=== PATIENT | female | born 1985 | race Caucasian/White ===

== ENCOUNTER 2024-05-08 11:10 | Emergency (ER) | payer SELFPAY ==
--- NOTE | ~2024-05-08 | US_ITS ---
EXAMINATION: US OB <=14 wk fetus w TV DATE: 05/08/2024 13:39 INDICATION: Concern for miscarriage during first trimester TECHNIQUE: Real-time pelvic ultrasound utilizing both a transvaginal and transabdominal probe was pe rformed. The interpreting radiologist was not present for the study. COMPARISON: None. FINDINGS: The uterus measures 8.1 x 4.9 x 5.5 cm. There is an intrauterine gestational sac. A 2 mm yolk sac is identified but no discernible pole which may be due to early stage of . The mean sac diameter measures 14 mm, which correlates with an estimated gestational age of 5 weeks and 4 days. Th ere is a trace amount of anechoic fluid measuring up to 1 mm in thickness within the endocervical can al. The right ovary is not visualized. The left ovary measures 2.6 x 1.9 x 2.1 cm. Vascular flow is ident ified in the left ovary on color Doppler. There is trace amount of free fluid in the deep cul-de-sac. IMPRESSION: 1. Single intrauterine gestational sac with visible yolk sac but no discernible pole likely due to early stage of . 2. Gestational age by ultrasound based upon mean sac diameter of 5 weeks 4 day(s) +/- 4 day(s) with ultrasound estimated date of delivery (BIJAL) of 01/04/2025. Reviewed, dictated and finalized at location A. [facility] IMPRESSION: 1. Single intrauterine gestational sac with visible yolk sac but no discernible pole likely due to early stage of . 2. Gestational age by ultrasound based upon mean sac diameter of 5 weeks 4 day (s) +/- 4 day(s) with ultrasound estimated date of delivery (BIJAL) of 01/04/2025 .
[2024-05-08 11:31] VITALS: BP 132/101; PULSE 70; RESP 20; TEMP 36.7; O2SAT 99
[2024-05-08 12:21] VITALS: BP 167/113; PULSE 88; RESP 18; O2SAT 99
[2024-05-08 12:30] VITALS: BP 111/92; PULSE 94; RESP 18; O2SAT 97
--- NOTE | 2024-05-08 12:44 | ED.PREGNANCY ---
HPI - General Chief complaint: Urogenital-Female Stated complaint: hematuria, bilateral flank pain, 9 weeks preg Time Seen by Provider: 05/08/24 12:11 History of Present Illness HPI Narrative: 39-year-old female presenting to the emergency department for ongoing vaginal bleeding in the setting of . She is approximately 9 weeks by last menstrual. However she went to a different emergency department 2 days ago and had ultrasound and beta hCG level drawn. At that time she had ultrasound report that state about 6 weeks but no cardiac activity with IUP noted. Beta hCG level of 13,000. She tried following up with OB for 2 day follow-up but was not able to and was told to go the emergency department. Patient describes passing clots with vaginal bleeding, pain in her abdomen, nauseousness without vomiting, no diarrhea constipation. No fever or chills. Started taking nitrofurantoin for UTI diagnosed at the previous providers visit. She states she has been before but never had a delivery. No history of abdominal surgeries. Was otherwise in her normal state of health. Related Data Allergies Allergy/AdvReac Type Severity Reaction Status Date / Time Sulfa (Sulfonamide Allergy Hives Verified 05/08/24 11:13 Antibiotics) Review of Systems Review of Systems: As reviewed above in HPI Exam Narrative: GENERAL: [Well-appearing, well-nourished, and in no acute distress.] HEAD: [Normocephalic, atraumatic.] EYES: [PERRLA and EOMI.] ENT: Nares clear, no rhinorrhea or epistaxis. Mucous membranes moist. NECK: Supple. CHEST: [Clear to auscultation. No respiratory distress.] HEART: [Regular rate and rhythm]. No murmur heard. [Normal peripheral pulses.] ABDOMEN: [Soft, nondistended], [nontender], [No rigidity or guarding] EXTREMITIES: Normal range of motion. [No edema.] SKIN: Warm, dry, no rash. NEURO: [No focal deficits]. Alert and oriented [x3.] PSYCH: Tearful affect Course Vital Signs Vital signs: Vital Signs Temperature 36.7 C 05/08/24 11:31 Pulse Rate 70 05/08/24 11:31 Respiratory Rate 20 05/08/24 11:31 Blood Pressure 132/101 H 05/08/24 11:31 Pulse Oximetry 99 05/08/24 11:31 Oxygen Delivery Room Air 05/08/24 11:31 Temperature 36.7 C 05/08/24 11:31 Pulse Rate 77 05/08/24 13:59 Respiratory Rate 16 05/08/24 13:59 Blood Pressure 132/90 05/08/24 13:59 Pulse Oximetry 99 05/08/24 13:59 Oxygen Delivery Room Air 05/08/24 11:31 MDM - OB/Uterine Contractions MDM Narrative Medical decision making narrative: 39-year-old female presenting to the emergency depart with ongoing vaginal bleeding, abdominal cramping in the setting of . She is approximately 9 weeks by last menstrual period, had an ultrasound 2 days ago at outside hospital showing IUP 6 weeks with no cardiac activity, beta hCG level of 13,000 and a UTI. She was placed on nitrofurantoin told to follow-up with OBGYN. She has not made an appointment or been able to follow-up with OBGYN and came to the ER here. She describes passing bright red blood mixed with some dark material as well as blood clots the size of times and stringy. No tissue passenger large blood clots to her knowledge. No fever, chills, vomiting, diarrhea, constipation. No history of abdominal surgeries. She has a soft nontender nondistended abdomen, is tearful but otherwise has normal vital signs with a significant derangements. No fever, tachycardia, hypoxia. I reviewed patient's MyChart on her phone and she has a beta hCG level of approximately 13,000 dated 2 days ago and a IUP with 6 weeks on ultrasound with a subchorionic hematoma noted. Will repeat ultrasound here and obtain new beta hCG level as well as blood work. She will be given morphine and Zofran for her discomfort. Lactated Ringer bolus given. Differential diagnosis includes ongoing miscarriage, early 1st trimester viable , vaginal bleeding in the setting , subchorionic hemorrhage, less likely abruption or trauma. Low suspicion other intra-abdominal process given her history. Workup shows no significant leukocytosis, hemoglobin stable at 13.4, normal platelet count. Normal electrolytes, normal renal and hepatic function panels. In beta hCG elevated at 14,289 thousand two hundred eighty nine which is increased over the 13,000 level 2 days ago from outside hospital. Urinalysis shows trace leukocyte esterase but no convincing UTI although she is currently on nitrofurantoin for treatment. Ultrasound shows a single IUP with yolk sac but no discernible pole, gestational age of approximately 5 weeks and 4 days which is lower than the previously reported 6 weeks 4 days from 2 days prior at outside report. 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 She does have a small rise in her beta hCG which could be seen in early or early miscarriage. We discussed at bedside the expectant plan of care going forward which will be to establish with OBGYN and be re-evaluated in the next several days for repeat labs and maybe even repeat ultrasound image. Patient was given very strict return precautions including bleeding greater than 2 pads per hour, feeling like she is going to pass out, nauseousness, worsening pain or cramping. Discussed expected management going forward and referred her to the on-call OBGYN to establish care. Patient felt comfortable with the plan and was safe for discharge at this time. Medical Records Attestation: I reviewed the patient's medical records. Lab Data Attestation: I reviewed the patient's lab results. 05/08/24 12:54 05/08/24 12:54 Labs: Lab Results 05/08/24 05/08/24 Range/Units 12:54 12:55 WBC 10.9 H (4.5-10.0) K/mm3 RBC 4.48 (4.2-5.4) M/mm3 Hgb 13.4 (12.0-15.0) g/dL Hct 39.5 (37.0-47.0) % MCV 88.2 (80-100) fl MCH 29.9 (26-34) pg MCHC 33.9 (32-36) g/dl RDW 12.5 (11.5-14.5) % Plt Count 341 (150-375) k/mm3 MPV 9.9 (7.4-10.4) fl Immature Gran % (Auto) 0.3 (0-0.5) % Neut % (Auto) 72.9 (45.5-73.1) % Lymph % (Auto) 20.5 (18.3-44.2) % [place] % (Auto) 4.0 (2.6-8.5) % Eos % (Auto) 1.8 (0-4.4) % Baso % (Auto) 0.5 (0.2-1.2) % Lymph # (Auto) 2.23 (0.9-3.2) K/mm3 [place]vert # (Auto) 0.4 (0.1-0.6) K/mm3 Eos # (Auto) 0.2 (0-0.3) K/mm3 Baso # (Auto) 0.1 (0.0-0.1) K/mm3 Abs Immat Gran (auto) 0.03 (0.00-0.031) K/mm3 Absolute Neuts (auto) 8.0 H (1.3-6.7) K/mm3 Absolute Nucleated RBC 0.000 (0.0-0.012) K/mm3 Nucleated RBC % 0.0 (0.0-0.2) % PT 12.6 (11.1-14.7) Seconds INR 0.9 APTT 27.1 (22.3-36.8) Seconds Sodium 140 (137-145) mmol/L Potassium 4.2 (3.4-5.0) mmol/L Chloride 104 (98-107) mmol/L Carbon Dioxide 24 (22-30) mmol/L Anion Gap 12 (4-12) mmol/L BUN 6 L (7-17) mg/dL Creatinine 0.63 L (0.7-1.0) mg/dL Estim Creat Clear Calc Not Reportable Estimated GFR > 60 (59 - ) Glucose 139 H (65-110) mg/dL Calcium 9.8 (8.4-10.2) mg/dL Total Bilirubin 0.6 (0.2-1.3) mg/dL AST 18 (14-36) U/L ALT 18 (6-35) U/L Alkaline Phosphatase 65 (38-126) U/L Total Protein 7.0 (6.3-8.2) g/dL Albumin 4.6 (3.5-5.1) g/dL Beta HCG, Quant 47920.00 mIU/ML Urine Color Yellow (Yellow) Urine Appearance Clear (Clear) Urine pH 6.5 (5.0-9.0) Ur Specific [place] 1.014 (1.001-1.035) Urine Protein Negative (Negative) mg/dL Urine Glucose (UA) Negative (Negative) mg/dL Urine Ketones Trace H (Negative) mg/dL Ur Blood (Man) 2+ H (Negative) Urine Nitrate Negative (Negative) Urine Bilirubin Negative (Negative) Urine Urobilinogen 0.2 (<2.0) mg/dL Add Ur Microanalysis Reviewed Leukocyte Esterase Rfl Trace H (Negative) BIBIANA/UL Urine RBC 6-10 H (0-2) /hpf Urine WBC 0-5 (0-3) /hpf Ur Squamous Epith Cells Occasional (Few) /hpf Urine Bacteria None seen /hpf Urine Casts 0-2 Blood Type A Positive Antibody Screen Negative Screen Not Reportable Baby's Blood Type Not Reportable Baby's ARABELLA Not Reportable Doses of RhIg Required 0 Imaging Data Attestation: I personally reviewed and interpreted this imaging study as follows: My impression: Impressions Obstetrics Ultrasound 05/08/24 13:50 IMPRESSION: 1. Single intrauterine gestational sac with visible yolk sac but no discernible pole likely due to early stage of . 2. Gestational age by ultrasound based upon mean sac diameter of 5 weeks 4 day(s) +/- 4 day(s) with ultrasound estimated date of delivery (BIJAL) of 01/04/2025. Discharge Plan Discharge Clinical Impression: Vaginal bleeding affecting early , Intrauterine , Miscarriage, threatened, early Patient Disposition: Home, Self-Care Condition: Stable Instructions: Antibiotic Form, Miscarriage (ED), Threatened Miscarriage (ED) Additional Instructions: Your ultrasound shows a approximate gestational age of 5 weeks and 4 days which is 1 week lower than the previous reported ultrasound 2 days ago. Your beta hCG level has risen slightly at 14,200 however in the setting of abdominal cramping and vaginal bleeding you likely are going through a threatened or in process miscarriage although very early cannot be fully excluded given the rise in your beta hCG level. We need you to establish with an OBGYN. Please call the provided clinic information or find her own OBGYN they prefer to see. Follow-up with them for repeat labs and possibly repeat imaging studies. Recommendations are to try and follow up with them in several days. If you experience worsening bleeding, worsening pain, soaking greater than 2 pads per hour or developing lightheadedness, passing out or feeling any other concerns please return to the emergency department at that time. Patient Language: German Follow-up/Referrals: Scar Anderson MD [Physician] - 3 Days (Establish care) Alan Bermeo MD [Physician] - 3 Days ([facility]) PHYSICIAN,PHYSICAL BIOCHEMIST [Non-Staff] - Time of Disposition: 14:24
--- OUTSIDE RECORDS SUMMARY | 2024-05-08 12:49 | XMS_ITS | Referral Summary ---
Author Organization [facility] Address [address] [place] [address] Phone Care Team Providers Care Shipping Point Inspector Name Role Phone Katrin Bess MD Primary Care Provider [phone] Allergies Active Allergy Reactions Criticality Noted Date Comments Sulfa (Sulfonamide Antibiotics) Hives Medium 11/[address] (CYMBALTA) 30 mg capsule Take 1 capsule (30 mg total) by mouth daily 30 capsule 06/01/2022 Active rimegepant (NURTEC ODT) tablet,disinteg ratingIndicatio ns:Migraine Prevention Place 1 tablet (75 mg total) under the tongue daily 14 tablet 06/01/2022 Active Active Problems Problem Noted Date Diagnosed Date Chronic migraine without aur a without status migrainosus, not intractable 06/01/2022 Assessment & Plan (06/01/2022 12:50 PM CDT): Chronic longstanding history of headache Trigger factors reviewed Maintain headache diary Supportive care treatment measures reviewed Empiric treatment with Nurtec Avoid OTC NSAID's to prevent analgesic headache Moderate episode of recurrent major depressive d isorder 06/01/2022 Assessment & Plan (06/01/2022 12:51 PM CDT): Symptomatic Start on Cymbalta, increase the dose to 60 mg daily in 7-10 days Side effects reviewed Encouraged to be compliant with the medicine Recommended counseling/CBT Follow-up in 6-8 weeks Immunizations Immunization Administration Dates Next Due Influenza, Unspecified 06/01/2022(Deferr ed: Patient Refused),05/16/2021(Deferred: Patient Refused) Tdap 06/02/2015 Social History Tobacco Use Types Packs/Day Years Used Date Smoking Tobacco: Every Day Cigarettes 0.5 22.1 Started: 2002 Tobacco Cessation:Ready to Q uit: Not Asked; Counseling Given: Not Answered AUDIT-C Answer Date Recorded Q1: How often do you have a drink containing alc ohol? Monthly or less 06/01/2022 Q2: How many drinks containi ng alcohol do you have on a typical day when you are drinking? 3 or 4 06/01/2022 Q3: How often do you have si x or more drinks on one occasion? 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 Care Teams Shipping Point Inspector Relationship Specialty Start Date End Date Katrin Bess MD [address] [place] [id number] PCP - General Family Medicine 06/01/22
--- OUTSIDE RECORDS SUMMARY | 2024-05-08 12:49 | XMS_ITS | Clinical Summary ---
Author Organization [facility] Address [address] [place] [address] Phone Care Team Providers Care Adz Worker Name Role Phone Katrin Bess MD Primary Care Provider [phone] Allergies Active Allergy Reactions Criticality Noted Date [...] ed: Patient Refused),05/16/2021(Deferred: Patient Refused) Tdap 06/02/2015 Surgical History Surgery Date Site/Laterality Comments NO PAST SURGERIES Medical History Medical History Date Comments Migraine headache dx at age 5 Family History Medical History Relation Name Comments Lung cancer Maternal Grandfather Diabetes Maternal Grandmother Headache Mother Lung cancer Paternal Grandfather Breast cancer Paternal Grandmother Colon cancer Neg Hx Heart attack Neg Hx Ovarian cancer Neg Hx Relation Name Status Comments Maternal Grandfather Maternal Grandmother Mother Paternal Grandfather Paternal Grandmother Social History Tobacco Use Types Packs/Day Years [...] on file 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 Gender Identity Not on file Sexual Orientation Not on file Obstetrics History Para Term AB IAB SAB Ectopic Multiple Livin g Live Births 1 1 Date Outcome GA Total Labor Labor/2nd/3rd Weight Sex Type Anes PTL Colette A1 A5 Name Clin AB Last Filed Vital Signs Vital Sign Reading [...] 06/01/2022 9:06 AM CDT Plan of Treatment Health Maintenance Due Date Last Done Comments Cervical Cancer Screening 1985 Hepatitis C Screening 1985 Varicella Vaccines (1 of 2 - 13+ 2-dose series) 1998 Hepatitis B Screening 2003 Regular Well Visit/Exam 18-64 2003 Pneumococcal vaccine <65 (1 of 2 - PCV) 02/07/2004 Depression Screening 06/02/2023 06/01/2022, 06/01/2022 Influenza Vaccine (#1) 2023 DTaP/Tdap/Td Vaccine (2 - Td or Tdap) 06/01/2025 06/02/2015 HPV Vaccines Aged Out No longer eligi ble based on patient's age to complete this topic Insurance [facility] Care Teams Adz Worker Relationship Specialty Start Date End Date Katrin Bess MD [address] [place] [address] [phone] PCP - General Family Medicine 06/01/22
--- OUTSIDE RECORDS SUMMARY | 2024-05-08 12:50 | XMS_ITS | Clinical Summary ---
Author Organization [facility] Address [address] [place] [address] Care Team Providers Care Centrifugal Separator Name Role Phone None, Provider MD Primary Care Provider Unavaila ble Allergies Active Allergy Reactions Criticality Noted Date Comments Sulfa Antibiotics Hives 05/06/2024 Medications nitrofurantoin, macrocrystal-mo nohydrate, (MACROBID) 100 MG capsule Take 1 capsule (100 mg total) by mouth 2 (two) times daily for 10 days. 20 capsule 05/06/2024 Active Encounters Date Type Department Care Team Description 05/06/2024 7:56 PM ENTERPRISE SOFTWARE DEVELOPER - 05/06/2024 10:48 PM ENTERPRISE SOFTWARE DEVELOPER Emergency [facility] Emergency Room [address] [place] [address] Jermain Cox MD Vaginal Bleeding Discharge Disposition: Home or Self Care (Routine Discharge) 05/06/2024 Travel from Last 3 Months Social History Tobacco Use Types Packs/Day Years Used Date Smoking Tobacco: Never Assessed Comments Yes Sex and Gender Information Value Date Recorded Sex Assigned at Female 05/06/2024 7:46 PM ENTERPRISE SOFTWARE DEVELOPER Legal Sex Female 7:30 PM ENTERPRISE SOFTWARE DEVELOPER Gender Identity Not on file Sexual Orientation Not on file Last Filed Vital Signs Vital Sign Reading Time Taken Comments Blood Pressure 126/70 05/06/2024 10:37 PM ENTERPRISE SOFTWARE DEVELOPER Pulse 78 05/06/2024 10:37 PM ENTERPRISE SOFTWARE DEVELOPER Temperature 36.9 C (98.4 F) 05/06/2024 9:09 PM ENTERPRISE SOFTWARE DEVELOPER Respiratory Rate 16 05/06/2024 10:37 PM ENTERPRISE SOFTWARE DEVELOPER Oxygen Saturation 98% 05/06/2024 10:37 PM ENTERPRISE SOFTWARE DEVELOPER Inhaled Oxygen Concentration - - Weight 72.6 kg (160 lb) 05/06/2024 9:09 PM ENTERPRISE SOFTWARE DEVELOPER Height 162.6 cm (5' 4 ) 05/06/2024 9:09 PM ENTERPRISE SOFTWARE DEVELOPER Body Mass Index 27.46 05/06/2024 9:09 PM ENTERPRISE SOFTWARE DEVELOPER Plan of Treatment Health Maintenance Due Date Last Done Comments Cervical Cancer Screening Pa p Smear (Age 30 to 64) Every 3 Years 1985 Annual Physical 02/07/1988 Hepatitis C 2003 DTaP, Tdap and Td Vaccines ( 1 - Tdap) 02/07/2004 Hepatitis B Vaccines (1 of 3 - 19+ 3-dose series) 02/07/2004 Cervical Cancer Screening Pa p with HPV Testing (Age 30 to 64) Every 5 Years 2015 Cervical Cancer Screening with HPV 2015 COVID-19 Vaccine (2023-2 5 season) 2023 Influenza Adult (#1) 2023 RSV Immunization or 60+ Years (1 - 1-dose 75+ series) 02/07/2060 HPV Vaccines Aged Out No longer eligi ble based on patient's age to complete this topic Meningococcal B Vaccine Aged Out No l onger eligible based on patient's age to complete this topic Meningococcal Vaccine Aged Out No maura fior eligible based on patient's age to complete this topic Pneumococcal Vaccine: Pediat rics (0 to 5 Years) and At-Risk Patients (6 to 64 Years) Aged Out No longer eligible b ased on patient's age to complete this topic RSV Immunizations Under 20 Months Aged Out No longer eligible based on patient's age to complete this topic Procedures Procedure Name Priority Date/Time Associated Diagnosis Comments HC BLOOD TYPING ABO STAT 05/06/2024 9 :15 PM ENTERPRISE SOFTWARE DEVELOPER HCG QUANT (SERUM)-CHORIONIC GONADOTROPIN STAT 05/06/2024 9:15 PM ENTERPRISE SOFTWARE DEVELOPER COMPREHENSIVE METABOLIC PANEL STAT 05/06/2024 9:15 PM ENTERPRISE SOFTWARE DEVELOPER CBC W/DIFF AUTOMATED STAT 05/06/2024 9:15 PM ENTERPRISE SOFTWARE DEVELOPER US OB TRANSVAG STAT 05/06/2024 8:58 PM ENTERPRISE SOFTWARE DEVELOPER URINALYSIS, AUTO, COMPLETE STAT 05/06/2024 8:37 PM ENTERPRISE SOFTWARE DEVELOPER from Last 3 Months Results * (ABNORMAL) COMPREHENSIVE METABOLIC PANEL (05/06/2024 9:15 PM ENTERPRISE SOFTWARE DEVELOPER) GLUCOSE 103(H) 70 - 99 MG/DL 05/06/2024 10:21 PM [facility] BUN 7 7 - 18 MG/DL 05/06/2024 10:21 PM [facility] CREATININE S/P/B 0.69 0.55 - 1.02 MG/DL 05/06/2024 10:21 PM [facility] SODIUM S/P/B 140 136 - 145 MMOL/L 05/06/2024 10:21 PM [facility] POTASSIUM S/P/B 3.6 3.5 - 5.1 MMOL/L 05/06/2024 10:21 PM [facility] CHLORIDE S/P/B 103 100 - 108 MMOL/L 05/06/2024 10:21 PM [facility] CO2 25.2 21 - 32 MMOL/L 05/06/2024 10:21 PM [facility] CALCIUM S/P/B 9.6 8.5 - 10.1 MG/DL 05/06/2024 10:21 PM [facility] BILIRUBIN TOTAL S/P/B 0.6 0.2 - 1.2 MG/DL 05/06/2024 10:21 PM [facility] TOTAL PROTEIN S/P/B 7.3 6.4 - 8.2 G/DL 05/06/2024 10:21 PM [facility] ALBUMIN S/P/B 4.1 3.4 - 5.0 G/DL 05/06/2024 10:21 PM [facility] AST 10(L) 15 - 37 U/L 05/06/2024 10:21 PM [facility] ALT 21 14 - 55 U/L 05/06/2024 10:21 PM [facility] ALKALINE PHOSPHATASE S/P/B 71 50 - 136 U/L 05/06/2024 10:21 PM [facility] ANION GAP 11.8 5 - 15 MMOL/L 05/06/2024 10:21 PM [facility] BUN CREATININE RATIO 10.1 6 - 26 05/06/2024 10:21 PM [facility] A/G RATIO 1.3 1.0 - 2.0 RATIO 05/06/2024 10:21 PM [facility] GFR ESTIMATE >90 >90 ML/MIN/1.7 3 M2 05/06/2024 10:21 PM [facility] Comment: NOTE: eGFR is not calculated for patients <18 years of age. This is an estimated GFR calculation using the new CKD EPI creatinine equation without race and so does not require a correction factor for race. This estimated GFR should not be used for calculating drug doses. 05/06/2024 9:15 PM ENTERPRISE SOFTWARE DEVELOPER us Jermain Cox MD LABORATORY Final Resu lt [facility] [address] [place] [address], * (ABNORMAL) Quantitative HCG (05/06/2024 9:15 PM ENTERPRISE SOFTWARE DEVELOPER) Pathologist [facility] HCG QUANTITATIVE 12,954(H) 0 - 6 MIU/ML 05/06/2024 10:21 PM [facility] Comment: WEEKS OF REFERENCE RANGES NON- FEMALE 0-6 0.2 - 1 5 - 50 1 - 2 50 - 500 2 - 3 100 - 5000 3 - 4 500 - 10,000 4 - 5 1000 - 50,000 5 - 6 10,000 - 100,000 6 - 8 15,000 - 200,000 2 - 3 MONTHS 10,000 - 100,000 05/06/2024 9:15 PM ENTERPRISE SOFTWARE DEVELOPER us Jermain Cox MD LABORATORY Final Resu lt Performing Organization Address City/[facility]/ZIP Co de Phone Number [facility] [address] [place] [address], [place] [phone] * BLOOD TYPING, ABO AND RH (05/06/2024 9:15 PM ENTERPRISE SOFTWARE DEVELOPER) ABO/RH A POSITIVE 05/06/2024 10:08 PM ENTERPRISE SOFTWARE DEVELOPER [facility] 05/06/2024 9:15 PM ENTERPRISE SOFTWARE DEVELOPER us Jermain Cox MD BLOOD BANK TEST ORDERABLES Final Result Performing Organization Address City/[facility] Co de Phone Number [facility] [address] [place] [address], [place] [phone] * (ABNORMAL) CBC W/DIFF AUTOMATED (05/06/2024 9:15 PM ENTERPRISE SOFTWARE DEVELOPER) WBC 11.26(H) 4.4 - 11.0 x10'3/uL 05/06/2024 9:39 PM ENTERPRISE SOFTWARE DEVELOPER [facility] RBC 4.53 4.50 - 5.10 x10'6/uL 05/06/2024 9:39 PM ENTERPRISE SOFTWARE DEVELOPER [facility] HGB 13.4 12.3 - 15.3 G/DL 05/06/2024 9:39 PM ENTERPRISE SOFTWARE DEVELOPER [facility] HCT 39.5 35.9 - 44.6 % 05/06/2024 9:39 PM [facility] MCV 87.2 80.0 - 96.0 FL 05/06/2024 9:39 PM [facility] MCH 29.6 25.3 - 30.9 PG 05/06/2024 9:39 PM [facility] MCHC 33.9 31.0 - 34.1 G/DL 05/06/2024 9:39 PM [facility] RDW 12.6 12.4 - 15.1 % 05/06/2024 9:39 PM [facility] PLT 354(H) 151 - 353 x10'3/uL 05/06/2024 9:39 PM [facility] MPV 9.8 9.6 - 12.0 FL 05/06/2024 9:39 PM [facility] RBC MORPHOLOGY NORMAL 05/06/2024 9:39 PM [facility] PLT MORPH. NORMAL 05/06/2024 9:39 PM [facility] WBC MORPHOLOGY NORMAL 05/06/2024 9:39 PM [facility] LYMPHOCYTES % 26.2 15.8 - 45.0 % 05/06/2024 9:39 PM [facility] NEUTROPHILS % 67.5 42.1 - 71.9 % 05/06/2024 9:39 PM [facility] MONOCYTES % 5.2(L) 5.7 - 12.5 % 05/06/2024 9:39 PM [facility] EOSINOPHILS 0.4 0.0 - 5.6 % 05/06/2024 9:39 PM [facility] BASOPHILS 0.4 0.0 - 1.3 % 05/06/2024 9:39 PM [facility] ABS. NEUTROPHILS 7.61(H) 1.40 - 6.00 x10'3/uL 05/06/2024 9:39 PM ENTERPRISE SOFTWARE DEVELOPER [facility] IMMATURE GRANS % 0.3 0.0 - 0.5 % 05/06/2024 9:39 PM ENTERPRISE SOFTWARE DEVELOPER [facility] ABS. LYMPHOCYTES 2.95 0.80 - 4.70 x10'3/uL 05/06/2024 9:39 PM ENTERPRISE SOFTWARE DEVELOPER [facility] 05/06/2024 9:15 PM ENTERPRISE SOFTWARE DEVELOPER us Jermain Cox MD LABORATORY Final Resu lt [facility] [address] [place] [id number], [place] [phone] * US OB TRANSVAG (05/06/2024 8:58 PM ENTERPRISE SOFTWARE DEVELOPER) Anatomical Region Laterality Modality Abdomen, Pelvis Ultrasound 05/06/2024 9:04 PM ENTERPRISE SOFTWARE DEVELOPER Impressions 05/06/2024 9:11 PM ENTERPRISE SOFTWARE DEVELOPER IMPRESSION: 1. Intrauterine gestational sac with mean sac diameter corresponding to gestational age of 6 weeks and 4 days. No detected cardiac activity or pole at this time. Findings likely represent an early intrauterine and correlation with short-term follow-up ultrasound and serial beta hCG is recommended. 2. Suggestion of small subchorionic hematoma 8 x 2 mm. Attention on short-term follow-up ultrasound is recommended. 3. Suggestion of left ovarian corpus luteum cyst. Referred By: Interpreted By: Cristobal Wakefield MD, 05/06/2024 9:04 PM Narrative 05/06/2024 9:11 PM ENTERPRISE SOFTWARE DEVELOPER [facility] [address] [place] [address] Examination: US OB TRANSVAGINAL Exam Date/Time: 05/06/2024 8:03 PM Reason For Exam: vaginal bleeding, 9 weeks estimated gestational age Comparison: No existing relevant imaging study available. Technique: Transvaginal ultrasound evaluation of the pelvic contents was performed for analysis of grayscale and color Doppler imaging characteristics. Findings: The uterus measures 8.6 x 4.6 x 5.2 cm. Intrauterine gestational sac is seen with mean sac diameter measuring 1.6 cm corresponding to gestational age of 6 weeks and 4 days. No detected pole or cardiac activity at this time. Small anechoic area is seen adjacent to the gestational sac measuring 8 x 2 mm. Right ovary measures 2.4 x 0.9 x 2.2 cm. Left ovary measures 2.7 x 2.0 x 2.0 cm. Normal flow is seen to bilateral ovaries. Suggestion of left ovarian corpus luteum cyst measuring 1.6 cm. No significant free pelvic fluid is seen. Procedure Note Cristobal Wakefield MD - 05/06/2024 [facility] [address] [facility] [place] [address] Examination: US OB TRANSVAGINAL Exam Date/Time: 05/06/2024 8:03 PM Reason For Exam: vaginal bleeding, 9 weeks estimated gestational age Comparison: No existing relevant imaging study available. Technique: Transvaginal ultrasound evaluation of the pelvic contents wasperformed for analysis of grayscale and color Doppler imagingcharacteristics. Findings: The uterus measures 8.6 x 4.6 x 5.2 cm. Intrauterine gestational sac isseen with mean sac diameter measuring 1.6 cm corresponding to gestationalage of 6 weeks and 4 days. No detected pole or cardiac activity atthis time. Small anechoic area is seen adjacent to the gestational sacmeasuring 8 x 2 mm. Right ovary measures 2.4 x 0.9 x 2.2 cm. Left ovary measures 2.7 x 2.0 x2.0 cm. Normal flow is seen to bilateral ovaries. Suggestion of leftovarian corpus luteum cyst measuring 1.6 cm. No significant free pelvic fluid is seen. IMPRESSION: 1. Intrauterine gestational sac with mean sac diameter corresponding togestational age of 6 weeks and 4 days. No detected cardiac activity orfetal pole at this time. Findings likely represent an early intrauterinepregnancy and correlation with short-term follow-up ultrasound and serialbeta hCG is recommended. 2. Suggestion of small subchorionic hematoma 8 x 2 mm. Attention onshort-term follow-up ultrasound is recommended. 3. Suggestion of left ovarian corpus luteum cyst. Referred By: Interpreted By: Cristobal Wakefield MD, 05/06/2024 9:04 PM us Jermain Cox MD ULTRASOUND Final Resu lt * (ABNORMAL) URINALYSIS, AUTO, COMPLETE (05/06/2024 8:37 PM ENTERPRISE SOFTWARE DEVELOPER) COLOR (U) YELLOW 05/06/2024 8:54 PM ENTERPRISE SOFTWARE DEVELOPER [facility] TRANSPARENCY HAZY 05/06/2024 8:54 PM ENTERPRISE SOFTWARE DEVELOPER [facility] SPECIFIC GRAVITY (U) 1.010 1.000 - 1.030 05/06/2024 8:54 PM [facility] U PH 6.0 5.0 - 9.0 05/06/2024 8:54 PM [facility] LEUKOCYTES (U) 1+(A) NEGATIVE 05/06/2024 8:54 PM [facility] NITRITES NEGATIVE NEGATIVE 05/06/2024 8:54 PM [facility] PROTEIN RANDOM (U) NEGATIVE NEGATIVE 05/06/2024 8:54 PM [facility] GLUCOSE (U) NEGATIVE NEGATIVE 05/06/2024 8:54 PM [facility] KETONES MG/DL (U) NEGATIVE NEGATIVE 05/06/2024 8:54 PM [facility] BILIRUBIN (U) NEGATIVE NEGATIVE 05/06/2024 8:54 PM [facility] BLOOD (U) 3+(A) NEGATIVE 05/06/2024 8:54 PM [facility] WBC/HPF 5-10 0 - 5 /HPF 05/06/2024 8:54 PM ENTERPRISE SOFTWARE DEVELOPER [facility] RBC/HPF 5-10 0 - 5 /HPF 05/06/2024 8:54 PM ENTERPRISE SOFTWARE DEVELOPER [facility] EPI/HPF FEW /HPF 05/06/2024 8:54 PM ENTERPRISE SOFTWARE DEVELOPER [facility] BACTERIA (U) MODERATE /HPF 05/06/2024 8:54 PM ENTERPRISE SOFTWARE DEVELOPER [facility] URINE MURRAY FEW 05/06/2024 8:54 PM ENTERPRISE SOFTWARE DEVELOPER [facility] Comment:MUCOUS URINE SPECIMEN OBTAINED BY CLEAN CATCH PROCEDURE / Unknown 05/06/2024 8:37 PM ENTERPRISE SOFTWARE DEVELOPER us Jermain Cox MD URINE ORDERABLES Final Res ult Performing Organization Address City/State/[facility] Co de Phone Number [facility] [address] [place] [address], [place] [phone] from Last 3 Months Care Teams Centrifugal Separator Relationship Specialty Start Date End Date None, Provider, PCP - General UNKNOWN PHYSICIAN SPECIALTY 05/06/24
--- OUTSIDE RECORDS SUMMARY | 2024-05-08 12:50 | XMS_ITS | Continuity of Care Document ---
Author Organization [facility] Address [address] [place] [address] Phone Care Team Providers Care Pumping Plant Operator Name Role Phone Gwen Palencia MD Unavailable Unavailable Allergies, Adverse Reactions, Alerts Substance Reaction Status Criticality Sulfa (Sulfonamide Antibiotics) Active No Information Medications Medication Instructions Dosage Effective Dates (start - stop) Status Comments Effexor XR 75 mg capsule,extended release take 1 capsule by oral route every day with food 75 MG - Active clonazepam 0.5 mg tablet take 1 tablet by oral route every day 0.5 MG - Active Effexor XR 75 mg capsule,extended release take 1 capsule by oral route every day with food 75 MG - No Longer Active clonazepam 0.5 mg tablet take 1 tablet by oral route every day 0.5 MG - No Longer Active Advance Directives Directive Yes / No Effective Date File Name No Information Encounters Encounter Description Practice Location Reason(s) For Visit Diagnoses Date Provider Providers Copied on Encounter [facility], [address], [place], [place], [id number] , [place] tel: [phone] [employer] [facility] MARVIN (generalized anxiety disorder)Nicotine dependence, other tobacco product, uncomplicatedOccupa tional exposure to chemicalsEncounter for adult health maintenance exam w/o abnormal finding [address], [place], [id number] , [place]. tel: [phone] Referring Provider: Gwen Palencia, [place] [address] [address], [address] . tel:[phone] [facility], [address], [place], [place], [id number] , [place] tel: [phone] [facility] Occupational exposure to chemicalsEncounter to establish careGAD (generalized anxiety disorder) [address], [facility] [place], [id number] , [place]. tel: [phone] Referring Provider: Gwen Palencia, [address], [place], [address] . tel:[phone] Family History Family Member Type Diagnosis Age At Onset Maternal grandmother Problem (finding) Cancer, unknown Maternal grandmother Problem (finding) hypertension Mother Problem (finding) hypertension Maternal grandmother Problem (finding) Diabetes mellit Payers Payer name Insurance type Covered alliance party ID Authorbilla aneta(s) YAHAIRA O CI [id number] Social History Type Description Quantity Date Captured Comments Alcohol Use Details Caffeine Use Details soda Tobacco Use Status Smoking Status Heavy tobacco smoker Sex Female Vital Signs Date / Time: Height Weight BMI Pulse Rate Blood Pressure Temperature Respiratory Rate Body Surface Area Head Circumference Head Circ. Percentile Wt./Remigio. Percentile BMI percentile Pulse Ox Inhaled Ox 9:27 AM 64.00 in 70.851 kg (156.20 lbs) 26.8 1 kg/m eter (2) 84 /min 118/90 mm[Hg] 98.20 F 1.79 meter(2) 9:50 AM 120/80 mm[Hg] Chief Complaint And Reason For Visit No Information Reason For Referral Reason For Referral No Information History Of Present Illness Encounter Date Complaint History Of Prese nt Illness No Information Functional Status Date Functional Assessmen t No Information Instructions Date Instruction Additional Infor mation No Information Assessments Type Assessment Date No Information Patient Care Teams Name Effective Dates (start - stop) Status Members No Information
--- OUTSIDE RECORDS SUMMARY | 2024-05-08 12:50 | XMS_ITS | Clinical Summary ---
Author Organization [facility] Address [address] [place] [address] Care Team Providers Care Dielectric Machine Operator Name Role Phone Unavailable Primary Care Provider Unavailabl e Source Comments [facility], [facility],non-owned Affiliates and Associated Physician Practices is amultiple site organization consisting of ambulatory clinics and hospital sitesin [place], [place], [place] and [place]. This disclosure is being madepursuant to the Care Everywhere program and may not contain all information available regarding this patient. Last updated 17.[facility] Allergies Active Allergy Reactions Criticality Noted Date Comments Sulfa Drugs 03/27/2016 Medications Be aware that medications may not be up to date on this document. Always verify current medications with the patient. No known medications Family History Relation Name Status Comments Father Alive Mother Alive Social History Tobacco Use Types Packs/Day Years Used Date Smoking Tobacco: Every Day Cigarettes Smokeless Tobacco: Never Tobacco Cessation:Ready to Q uit: Yes; Counseling Given: Yes Alcohol Use Standard Drinks/Week Comments Yes 0 (1 standard drink = 0.6 oz pur e alcohol) occ PHQ-2 Answer Date Recorded PHQ2 TOTAL SCORE 0 07/26/2020 Sex and Gender Information Value Date Recorded Sex Assigned at Not on file Gender Identity Female 09/12/2017 10:58 AM CDT Sexual Orientation Not on file Last Filed Vital Signs Vital Sign Reading Time Taken Comments Blood Pressure 138/80 07/26/2020 9:14 AM CDT Pulse 92 07/26/2020 9:14 AM CDT Temperature 36.7 C (98 F) 07/26/2020 9:14 AM CDT Respiratory Rate 14 07/26/2020 9:14 AM CDT Oxygen Saturation 98% 07/26/2020 9:14 AM CDT Inhaled Oxygen Concentration - - Weight 72.6 kg (160 lb) 07/26/2020 9:14 AM CDT Height 162.6 cm (5' 4 ) 07/26/2020 9:14 AM CDT Body Mass Index 27.46 07/26/2020 9:14 AM CDT Plan of Treatment Health Maintenance Due Date Last Done Comments HIV SCREENING 02/07/2000 HEPATITIS C SCREENING 02/02/2003 DTAP/TDAP/TD VACCINES (1 - Tdap) 02/07/2004 HEPATITIS B VACCINE (1 of 3 - 19+ 3-dose series) 02/07/2004 PAP SMEAR 06/12/2013 06/12/2010 COVID-19 VACCINE (1 - 2023-2 5 season) 2023 INFLUENZA VACCINE (#1) 2023 DEPRESSION SCREENING 03/18/2024 ZOSTER VACCINE (1 of 2) 2035 HIB VACCINE Aged Out No longer eligi ble based on patient's age to complete this topic HPV VACCINE Aged Out No longer eligi ble based on patient's age to complete this topic MENINGOCOCCAL (Group B) VACCINE Aged Out No longer eligible based on patient's age to complete this topic MENINGOCOCCAL VACCINE Aged Out No maura fior eligible based on patient's age to complete this topic PNEUMOCOCCAL VACCINE Aged Out No long er eligible based on patient's age to complete this topic Procedures Procedure Name Priority Date/Time Associated Diagnosis Comments PAP IG LB CT+GC RFLX HPV HR ASCU Routine 06/12/2010 2:34 PM CDT Routine gynecological examination Skin tag from Last 3 Months or Most Recently Relevant to Health Maintenance Results * PAP IG CT+GC RFLX HPV ASCU (PO REF LAB) (06/12/2010 2:34 PM CDT) Diagnosis [facility] ACCOUNT BILL Comment: NEGATIVE FOR INTRAEPITHELIAL LESION AND MALIGNANCY. CELLULAR CHANGES ASSOCIATED WITH INFLAMMATION ARE PRESENT. THIS SPECIMEN WAS RESCREENED PART OF OUR CUSTOMER RESOLUTION SPECIALIST PROGRAM. Specimen Adequacy [facility] ACCOUNT BILL Comment: Satisfactory for evaluation. Endocervical and/or squamous metaplastic cells (endocervical component) are present. Clinician Provided ICD9 [facility] ACCOUNT BILL Comment: 701.9 ; Unspecified hypertrophic and atrophic condition of skin V72.31 ; Routine gynecological examination Performed by [facility] ACCOUNT BILL Comment:Esmer Muñoz, Cyto technologist (ASCP) QC Reviewed by [facility] ACCOUNT BILL Comment:Paulette Abrams Manager Cash (ASCP) Comment . [facility] ACCOUNT BILL Note [facility] ACCOUNT BILL Comment: The Pap smear is a screening test designed to aid in the detection of premalignant and malignant conditions of the uterine cervix. It is not a diagnostic procedure and should not be used as the sole means of detecting cervical cancer. Both false-positive and false-negative reports do occur. . IGLBP CPT Code Automation [facility] ACCOUNT BILL Comment: This liquid based ThinPrep(R) pap test was screened with the use of an image guided system. Reflex [facility] ACCOUNT BILL Comment: The HPV DNA reflex criteria were not met with this specimen result therefore, no HPV testing was performed. . Chlamydia trachomatis REILLY Negative Negative [facility] ACCOUNT BILL GC DNA Probe Negative Negative [facility] ACCOUNT BILL MICROSCOPIC CYTOLOGIC EXAMINATION OF SMEAR OF SPECIMEN FROM FEMALE GENITAL TRACT PREPARED USING PAPANICOLAOU TECHNIQUE / Unknown 06/12/2010 2:34 PM CDT 06/13/2010 5:43 AM CDT Narrative [facility] ACCOUNT BILL - 06/19/2010 12:11 PM CDT No. of containers..01 CYTYC Thin Prep Vial Resulting Agency Comment [facility] [address] Guzman [id number] Jaycee Omalley MD LAB - PATHOLOGY/CYTO LOGY ORDERABLES [facility] ACCOUNT BILL from Last 3 Months or Most Recently Relevant to Health Maintenance Ria Griffin Personal/Family Self 1985 [id number] [id number]
--- OUTSIDE RECORDS SUMMARY | 2024-05-08 12:50 | XMS_ITS | Encounter Summary ---
Author Organization [facility] Address [address] [place] [id number] Care Team Providers Care English Composition Instructor Name Role Phone None, Provider MD Primary Care Provider Unavaila ble Reason for Referral * Imaging (Emergency) - Pending Review Specialty Diagnoses / Procedures Referred By Contbozena t Referred To Contact RADIOLOGY Procedures US OB TRANSVAG US OB <14WKS TA Jermain Cox MD [address] [place] [address] Phone: tel: fax: Referral ID Status Reason Start Date Expiration Date V isits Requested Visits Authorized Pending Review 05/06/2024 05/06/2025 1 1 ULTING PRACTICE DIRECTOR Reason for Visit * Reason Comments Vaginal Bleeding Encounter Details Date Type Department Care Team (Late st Contact Info) Description 05/06/2024 7:56 PM CONSULTING PRACTICE DIRECTOR - 05/06/2024 10:48 PM CONSULTING PRACTICE DIRECTOR Emergency [facility] Emergency Room [address] [place] [address] Jermain Cox MD [address] [place] [address] Vaginal Bleeding Discharge Disposition: Home or Self Care (Routine Discharge) Social History Tobacco Use Types Packs/Day Years Used Date Smoking Tobacco: Never Assessed Comments Yes Sex and Gender Information Value Date Recorded Sex Assigned at Female 05/06/2024 7:46 PM CONSULTING PRACTICE DIRECTOR Legal Sex Female 7:30 PM CONSULTING PRACTICE DIRECTOR Gender Identity Not on file Sexual Orientation Not on file documented as of this encounter Last Filed Vital Signs Vital Sign Reading Time Taken Comments Blood Pressure 126/70 05/06/2024 10:37 PM CONSULTING PRACTICE DIRECTOR Pulse 78 05/06/2024 10:37 PM CONSULTING PRACTICE DIRECTOR Temperature 36.9 C (98.4 F) 05/06/2024 9:09 PM CONSULTING PRACTICE DIRECTOR Respiratory Rate 16 05/06/2024 10:37 PM CONSULTING PRACTICE DIRECTOR Oxygen Saturation 98% 05/06/2024 10:37 PM CONSULTING PRACTICE DIRECTOR Inhaled Oxygen Concentration - - Weight 72.6 kg (160 lb) 05/06/2024 9:09 PM CONSULTING PRACTICE DIRECTOR Height 162.6 cm (5' 4 ) 05/06/2024 9:09 PM CONSULTING PRACTICE DIRECTOR Body Mass Index 27.46 05/06/2024 9:09 PM CONSULTING PRACTICE DIRECTOR documented in this encounter Discharge Instructions * Discharge Instructions* Jermain Cox MD - 05/06/2024 10:31 PM CONSULTING PRACTICE DIRECTOR Contact the [facility] tomorrow at the phone number provided. During that call they will be ableto schedule you for your repeat hormone level and can provide additional guidance regarding getting insurance. They have provided reassurance that this should not prevent follow-up within their clinic. Take the antibiotic as directed until gone. ULTING PRACTICE DIRECTOR ULTING PRACTICE DIRECTOR * Attachments The following attachments cannot be sent through Care Everywhere. * Urinary Tract Infection Discharge Instructions, Adult (Montenegrin) * Threatened Miscarriage Discharge Instructions (Montenegrin) documented in this encounter Medications at Time of Discharge nitrofurantoin, macrocrystal-mono hydrate, (MACROBID) 100 MG capsule Take 1 capsule (100 mg total) by mouth 2 (two) times daily for 10 days. 20 capsule 05/06/2024 05/16/2024 documented as of this encounter ED Notes * Jermain Cox MD - 05/06/2024 10:48 PM CST Chief Complaint Chief Complaint Patient presents with Vaginal Bleeding History of Present Illness 39-year-old female G3, P0 EAB 2 at 9 weeks EGA by dates here with complaints of small amount of vaginal bleeding. Patient denies abdominal pain. No lightheadedness. She denies vaginal discharge. Patient has not been seen by an [facility] or had an ultrasound. Patient denies other medical complaints. Medical History ALLERGIES: Allergies Allergen Reactions Sulfa Antibiotics Hives MEDICATIONS: Prior to Admission medications Medication Sig Start Date End Date Taking? Authorizing Provider nitrofurantoin, macrocrystal-monohydrate, (MACROBID) 100 MG capsule Take 1 capsule (100 mg total) by mouth 2 (two) times daily for 10 days. 05/06/24 05/16/24 Yes Jermain Cox MD PAST MEDICAL HISTORY: No past medical history on file. PAST SURGICAL HISTORY: No past surgical history on file. FAMILY HISTORY: No family history on file. SOCIAL HISTORY: Review of Systems Review of Systems Physical Exam Filed Vitals: 05/06/24 2109 05/06/24 2237 BP: (!) 151/92 126/70 Pulse: 71 78 Resp: 16 16 Temp: 98.4 ??F (36.9 ??C) TempSrc: Oral SpO2: 97% 98% Weight: 72.6 kg (160 lb) Height: 1.626 m (5' 4 ) Physical Exam Vitals and nursing note reviewed. Constitutional: General: She is not in acute distress. Appearance: She is well-developed. HENT: Head: Normocephalic and atraumatic. Right Ear: External ear normal. Left Ear: External ear normal. Nose: Nose normal. Eyes: General: No scleral icterus. Pupils: Pupils are equal, round, and reactive to light. Cardiovascular: Rate and Rhythm: Normal rate and regular rhythm. Pulses: Normal pulses. Heart sounds: Normal heart sounds. Pulmonary: Effort: Pulmonary effort is normal. No respiratory distress. Breath sounds: Normal breath sounds. No stridor. No wheezing. Abdominal: General: Bowel sounds are normal. There is no distension. Palpations: Abdomen is soft. Musculoskeletal: General: No deformity. Normal range of motion. Cervical back: Normal range of motion and neck supple. Skin: General: Skin is warm and dry. Capillary Refill: Capillary refill takes less than 2 seconds. Findings: No rash. Neurological: Mental Status: She is alert and oriented to person, place, and time. Cranial Nerves: No cranial nerve deficit. Psychiatric: Mood and Affect: Mood normal. Behavior: Behavior normal. Diagnostic Studies / Procedures ELECTROCARDIOGRAMS: No results found for this visit on 05/06/24. LABORATORY STUDIES: Results for orders placed or performed during the hospital encounter of 05/06/24 CBC W/DIFF AUTOMATED Result Value Ref Range WBC 11.26 (H) 4.4 - 11.0 x10'3/uL RBC 4.53 4.50 - 5.10 x10'6/uL HGB 13.4 12.3 - 15.3 G/DL HCT 39.5 35.9 - 44.6 % MCV 87.2 80.0 - 96.0 FL MCH 29.6 25.3 - 30.9 PG MCHC 33.9 31.0 - 34.1 G/DL RDW 12.6 12.4 - 15.1 % PLT 354 (H) 151 - 353 x10'3/uL MPV 9.8 9.6 - 12.0 FL RBC MORPHOLOGY NORMAL PLT MORPH. NORMAL WBC MORPHOLOGY NORMAL LYMPHOCYTES % 26.2 15.8 - 45.0 % NEUTROPHILS % 67.5 42.1 - 71.9 % MONOCYTES % 5.2 (L) 5.7 - 12.5 % EOSINOPHILS 0.4 0.0 - 5.6 % BASOPHILS 0.4 0.0 - 1.3 % ABS. NEUTROPHILS 7.61 (H) 1.40 - 6.00 x10'3/uL IMMATURE GRANS % 0.3 0.0 - 0.5 % ABS. LYMPHOCYTES 2.95 0.80 - 4.70 x10'3/uL COMPREHENSIVE METABOLIC PANEL Result Value Ref Range GLUCOSE 103 (H) 70 - 99 MG/DL BUN 7 7 - 18 MG/DL CREATININE S/P/B 0.69 0.55 - 1.02 MG/DL SODIUM S/P/B 140 136 - 145 MMOL/L POTASSIUM S/P/B 3.6 3.5 - 5.1 MMOL/L CHLORIDE S/P/B 103 100 - 108 MMOL/L CO2 25.2 21 - 32 MMOL/L CALCIUM S/P/B 9.6 8.5 - 10.1 MG/DL BILIRUBIN TOTAL S/P/B 0.6 0.2 - 1.2 MG/DL TOTAL PROTEIN S/P/B 7.3 6.4 - 8.2 G/DL ALBUMIN S/P/B 4.1 3.4 - 5.0 G/DL AST 10 (L) 15 - 37 U/L ALT 21 14 - 55 U/L ALKALINE PHOSPHATASE S/P/B 71 50 - 136 U/L ANION GAP 11.8 5 - 15 MMOL/L BUN CREATININE RATIO 10.1 6 - 26 A/G RATIO 1.3 1.0 - 2.0 RATIO GFR ESTIMATE >90 >90 ML/MIN/1.73 M2 URINALYSIS, AUTO, COMPLETE Result Value Ref Range COLOR (U) YELLOW TRANSPARENCY HAZY SPECIFIC GRAVITY (U) 1.010 1.000 - 1.030 U PH 6.0 5.0 - 9.0 LEUKOCYTES (U) 1+ (A) NEGATIVE NITRITES NEGATIVE NEGATIVE PROTEIN RANDOM (U) NEGATIVE NEGATIVE GLUCOSE (U) NEGATIVE NEGATIVE KETONES MG/DL (U) NEGATIVE NEGATIVE BILIRUBIN (U) NEGATIVE NEGATIVE BLOOD (U) 3+ (A) NEGATIVE WBC/HPF 5-10 0 - 5 /HPF RBC/HPF 5-10 0 - 5 /HPF EPI/HPF FEW /HPF BACTERIA (U) MODERATE /HPF URINE MURRAY FEW Quantitative HCG Result Value Ref Range HCG QUANTITATIVE 12,954 (H) 0 - 6 MIU/ML BLOOD TYPING, ABO AND RH Result Value Ref Range ABO/RH A POSITIVE IMAGING STUDIES US OB TRANSVAG Final Result by User, [id number] (05/06 2115) [facility] [address] [facility] [address] Examination: US OB TRANSVAGINAL Exam Date/Time: 05/06/2024 [...] By: Cristobal Wakefield MD, 05/06/2024 9:04 PM ED Course / Medical Decision Making Medical Decision Making 39-year-old female G3, P0 EAB 2 at 9 weeks EGA by dates here with complaints of small amount of vaginal bleeding. Patient denies abdominal pain. No lightheadedness. She denies vaginal discharge. Patient has not been seen by an [facility] or had an ultrasound. Patient denies other medical complaints. Vital signs are stable. Abdomen is benign. Cardiopulmonary exam is unremarkable. Patient is Rh+. Quantitative hCG is 12,000. Hemoglobin is normal. Ultrasound was obtained and demonstrated intrauterine gestational sac that measures approximately 6 weeks 4 days. No pole or heart motion is noted. This is potentially consistent with 6-week gestation. Urinalysis was notable for leukocyte esterase, negative for nitrite, 3+ blood and 5-10 WBCs with moderate bacteria. This is sufficient to warrant treatment for UTI in a patient. Macrobid was provided here as well as a prescription for home. Patient has significant concerns about achieving follow-up due to lack of insurance. Due to this potential loss of follow-up and the importance of repeat evaluation including repeat quantitative hCG I did discuss the case with Dr. Amberly Grimes who agreed with plan to discharge patient to home with patient instructed to contact the clinic. During that call guidance will be provided regarding achieving insurance as well as follow-up in clinic for repeat hCG. Patient expressed understanding. Patient was discharged to home in stable condition with contact information for [facility] Problems Addressed: Threatened miscarriage in early (HHS/HCC): acute illness or injury Amount and/or Complexity of Data Reviewed Labs: ordered. Radiology: ordered. Risk OTC drugs. Prescription drug management. Clinical Impression UTI (urinary tract infection) (Primary) Threatened miscarriage in early (HHS/HCC) Disposition: Discharge Jermain Cox MD 05/07/24 0209 ULTING PRACTICE DIRECTOR * Betty Hayes RN - 05/06/2024 9:01 PM CST Pt here for c/o vaginal bleeding that started today. Reports she believes she is 9 weeks . Also having issues with abd cramping and nausea. ULTING PRACTICE DIRECTOR documented in this encounter Plan of Treatment Not on file documented as of this encounter Procedures Procedure Name Priority Date/Time Associated Diagnosis Comments COMPREHENSIVE METABOLIC PANEL STAT 05/06/2024 9:15 PM CONSULTING PRACTICE DIRECTOR HCG QUANT (SERUM)-CHORIONIC GONADOTROPIN STAT 05/06/2024 9:15 PM CONSULTING PRACTICE DIRECTOR HC BLOOD TYPING ABO STAT 05/06/2024 9 :15 PM CONSULTING PRACTICE DIRECTOR CBC W/DIFF AUTOMATED STAT 05/06/2024 9:15 PM CONSULTING PRACTICE DIRECTOR US OB TRANSVAG STAT 05/06/2024 8:58 PM CONSULTING PRACTICE DIRECTOR URINALYSIS, AUTO, COMPLETE STAT 05/06/2024 8:37 PM CONSULTING PRACTICE DIRECTOR documented in this encounter Results * BLOOD TYPING, ABO AND RH (05/06/2024 9:15 PM CONSULTING PRACTICE DIRECTOR) ABO/RH A POSITIVE 05/06/2024 10:08 PM CONSULTING PRACTICE DIRECTOR [facility] 05/06/2024 9:15 PM CONSULTING PRACTICE DIRECTOR Jermain Cox MD BLOOD BANK TEST ORDERABLES Final Result [facility] [address] [place] [address], [place] [phone] * (ABNORMAL) Quantitative HCG (05/06/2024 9:15 PM CONSULTING PRACTICE DIRECTOR) HCG QUANTITATIVE 12,954(H) 0 - 6 MIU/ML 05/06/2024 10:21 PM CONSULTING PRACTICE DIRECTOR [facility] Comment: WEEKS OF REFERENCE RANGES NON- FEMALE 0-6 0.2 - 1 5 - 50 1 - 2 50 - 500 2 - 3 100 - 5000 3 - 4 500 - 10,000 4 - 5 1000 - 50,000 5 - 6 10,000 - 100,000 6 - 8 15,000 - 200,000 2 - 3 MONTHS 10,000 - 100,000 05/06/2024 9:15 PM CONSULTING PRACTICE DIRECTOR Jermain Cox MD LABORATORY Final Resu lt Performing Organization Address City/[facility]/ZIP Co de Phone Number [facility] [address] [place] [address], [place] [phone] * (ABNORMAL) COMPREHENSIVE METABOLIC PANEL (05/06/2024 9:15 PM CONSULTING PRACTICE DIRECTOR) GLUCOSE 103(H) 70 - 99 MG/DL 05/06/2024 10:21 PM CONSULTING PRACTICE DIRECTOR [facility] BUN 7 7 - 18 MG/DL 05/06/2024 10:21 PM [facility] CREATININE S/P/B 0.69 0.55 - 1.02 MG/DL 05/06/2024 10:21 PM [facility] SODIUM S/P/B 140 136 - 145 MMOL/L 05/06/2024 10:21 PM CONSULTING PRACTICE DIRECTOR [facility] POTASSIUM S/P/B 3.6 3.5 - 5.1 MMOL/L 05/06/2024 10:21 PM [facility] CHLORIDE S/P/B 103 100 - 108 MMOL/L 05/06/2024 10:21 PM [facility] CO2 25.2 21 - 32 MMOL/L 05/06/2024 10:21 PM [facility] CALCIUM S/P/B 9.6 8.5 - 10.1 MG/DL 05/06/2024 10:21 PM [facility] BILIRUBIN TOTAL S/P/B 0.6 0.2 - 1.2 MG/DL 05/06/2024 10:21 PM [facility] TOTAL PROTEIN S/P/B 7.3 6.4 - 8.2 G/DL 05/06/2024 10:21 PM [facility] ALBUMIN S/P/B 4.1 3.4 - 5.0 G/DL 05/06/2024 10:21 PM [facility] AST 10(L) 15 - 37 U/L 05/06/2024 10:21 PM [facility] ALT 21 14 - 55 U/L 05/06/2024 10:21 PM [facility] ALKALINE PHOSPHATASE S/P/B 71 50 - 136 U/L 05/06/2024 10:21 PM [facility] ANION GAP 11.8 5 - 15 MMOL/L 05/06/2024 10:21 PM [facility] BUN CREATININE RATIO 10.1 6 - 26 05/06/2024 10:21 PM [facility] A/G RATIO 1.3 1.0 - 2.0 RATIO 05/06/2024 10:21 PM [facility] GFR ESTIMATE >90 >90 ML/MIN/1.7 3 M2 05/06/2024 10:21 PM CONSULTING PRACTICE DIRECTOR [facility] Comment: NOTE: eGFR is not calculated for patients <18 years of age. This is an estimated GFR calculation using the new CKD EPI creatinine equation without race and so does not require a correction factor for race. This estimated GFR should not be used for calculating drug doses. 05/06/2024 9:15 PM CONSULTING PRACTICE DIRECTOR us Jermain Cox MD LABORATORY Final Resu lt [facility] [address] [place] [address], * (ABNORMAL) CBC W/DIFF AUTOMATED (05/06/2024 9:15 PM CONSULTING PRACTICE DIRECTOR) WBC 11.26(H) 4.4 - 11.0 x10'3/uL 05/06/2024 9:39 PM [facility] RBC 4.53 4.50 - 5.10 x10'6/uL 05/06/2024 9:39 PM [facility] HGB 13.4 12.3 - 15.3 G/DL 05/06/2024 9:39 PM [facility] HCT 39.5 35.9 - 44.6 % 05/06/2024 9:39 PM [facility] MCV 87.2 80.0 - 96.0 FL 05/06/2024 9:39 PM [facility] MCH 29.6 25.3 - 30.9 PG 05/06/2024 9:39 PM [facility] MCHC 33.9 31.0 - 34.1 G/DL 05/06/2024 9:39 PM [facility] RDW 12.6 12.4 - 15.1 % 05/06/2024 9:39 PM [facility] PLT 354(H) 151 - 353 x10'3/uL 05/06/2024 9:39 PM [facility] MPV 9.8 9.6 - 12.0 FL 05/06/2024 9:39 PM [facility] RBC MORPHOLOGY NORMAL 05/06/2024 9:39 PM [facility] PLT MORPH. NORMAL 05/06/2024 9:39 PM [facility] WBC MORPHOLOGY NORMAL 05/06/2024 9:39 PM [facility] LYMPHOCYTES % 26.2 15.8 - 45.0 % 05/06/2024 9:39 PM [facility] NEUTROPHILS % 67.5 42.1 - 71.9 % 05/06/2024 9:39 PM [facility] MONOCYTES % 5.2(L) 5.7 - 12.5 % 05/06/2024 9:39 PM [facility] EOSINOPHILS 0.4 0.0 - 5.6 % 05/06/2024 9:39 PM [facility] BASOPHILS 0.4 0.0 - 1.3 % 05/06/2024 9:39 PM [facility] ABS. NEUTROPHILS 7.61(H) 1.40 - 6.00 x10'3/uL 05/06/2024 9:39 PM [facility] IMMATURE GRANS % 0.3 0.0 - 0.5 % 05/06/2024 9:39 PM [facility] ABS. LYMPHOCYTES 2.95 0.80 - 4.70 x10'3/uL 05/06/2024 9:39 PM [facility] 05/06/2024 9:15 PM CONSULTING PRACTICE DIRECTOR us Jermain Cox MD LABORATORY Final Resu lt [facility] [address] [place] [id number], * US OB TRANSVAG (05/06/2024 8:58 PM CONSULTING PRACTICE DIRECTOR) Anatomical Region Laterality Modality Abdomen, Pelvis Ultrasound 05/06/2024 9:04 PM CONSULTING PRACTICE DIRECTOR Impressions 05/06/2024 9:11 PM CONSULTING PRACTICE DIRECTOR IMPRESSION: 1. Intrauterine gestational sac with mean [...] 05/06/2024 9:04 PM Narrative 05/06/2024 9:11 PM CONSULTING PRACTICE DIRECTOR [facility] [address] [place] [address] Examination: US OB TRANSVAGINAL Exam Date/Time: 05/06/2024 [...] Procedure Note Cristobal Wakefield MD - 05/06/2024 [facility] [address] [place] [address] Examination: US OB TRANSVAGINAL Exam Date/Time: 05/06/2024 [...] (ABNORMAL) URINALYSIS, AUTO, COMPLETE (05/06/2024 8:37 PM CONSULTING PRACTICE DIRECTOR) COLOR (U) YELLOW 05/06/2024 8:54 PM [facility] TRANSPARENCY HAZY 05/06/2024 8:54 PM [facility] SPECIFIC GRAVITY (U) 1.010 1.000 - 1.030 05/06/2024 8:54 PM [facility] U PH 6.0 5.0 - 9.0 05/06/2024 8:54 PM [facility] LEUKOCYTES (U) 1+(A) NEGATIVE 05/06/2024 8:54 PM [facility] NITRITES NEGATIVE NEGATIVE 05/06/2024 8:54 PM [facility] PROTEIN RANDOM (U) NEGATIVE NEGATIVE 05/06/2024 8:54 PM [facility] GLUCOSE (U) NEGATIVE NEGATIVE 05/06/2024 8:54 PM [facility] KETONES MG/DL (U) NEGATIVE NEGATIVE 05/06/2024 8:54 PM [facility] BILIRUBIN (U) NEGATIVE NEGATIVE 05/06/2024 8:54 PM [facility] BLOOD (U) 3+(A) NEGATIVE 05/06/2024 8:54 PM [facility] WBC/HPF 5-10 0 - 5 /HPF 05/06/2024 8:54 PM [facility] RBC/HPF 5-10 0 - 5 /HPF 05/06/2024 8:54 PM [facility] EPI/HPF FEW /HPF 05/06/2024 8:54 PM [facility] BACTERIA (U) MODERATE /HPF 05/06/2024 8:54 PM [facility] URINE MURRAY FEW 05/06/2024 8:54 PM [facility] Comment:MUCOUS URINE SPECIMEN OBTAINED BY CLEAN CATCH PROCEDURE / Unknown 05/06/2024 8:37 PM CONSULTING PRACTICE DIRECTOR Jermain Cox MD URINE ORDERABLES Final Res ult [facility] [address] [place] [address], [place] [phone] documented in this encounter Visit Diagnoses Diagnosis UTI (urinary tract infection)- Primary Urinary tract infection, site not specified Threatened miscarriage in early (HHS/HCC) Threatened , unspecified as to episode of care documented in this encounter Administered Medications Inactive Administered Medications - up to 3 most recent administrations Medication Order MAR Action Action Date Dose Rate Site nitrofurantoin (macrocrystal-monohydrate) (MACROBID) capsule 100 mg 100 mg, Oral, Once, 1 dose, On Sat05/06/24 at 2130 Given 05/06/2024 9:50 PM CONSULTING PRACTICE DIRECTOR 100 mg documented in this encounter Active and Recently Administered Medications Times are shown in CONSULTING PRACTICE DIRECTOR. Scheduled Medication Order 05/04/2024 05/05/2024 05/06/2024 nitrofurantoin (macrocrystal-monohydrate) (MACROBID) capsule 100 mg (COMPLETED) 100 mg, Oral, Once, 1 dose, On Sat05/06/24 at 2130 2150 (Given - Provid er: Wilma Potter RN) documented in this encounter Care Teams English Composition Instructor Relationship Specialty Start Date End Date None, Provider, MD PCP - General UNKNOWN PHYSICIAN SPECIALTY 05/06/24 documented as of this encounter
--- OUTSIDE RECORDS SUMMARY | 2024-05-08 12:50 | XMS_ITS | Referral Summary ---
Author Organization [facility] Address [address] [place] [address] Care Team Providers Care Line Tender Name Role Phone Unavailable Primary Care Provider Unavailabl e Source Comments [facility],non-owned Affiliates and Associated Physician Practices is amultiple site organization consisting of ambulatory clinics and hospital sitesin [place], [place], [place] and [place]. This disclosure is being madepursuant to the Care Everywhere program and may not contain all information available regarding this patient. Last updated 17.[facility] Allergies Active Allergy Reactions Criticality Noted Date Comments Sulfa Drugs 03/27/2016 Medications Be aware that medications may not be up to date on this document. Always verify current medications with the patient. No known medications Social History Tobacco Use Types Packs/Day Years [...] 07/26/2020 9:14 AM CDT Plan of Treatment Not on file Procedures Procedure Name Priority Date/Time Associated Diagnosis [...] THIS SPECIMEN WAS RESCREENED PART OF OUR CLINICAL MANAGER HOME CARE PROGRAM. Specimen Adequacy [facility] ACCOUNT BILL Comment: Satisfactory for evaluation. Endocervical and/or squamous metaplastic cells (endocervical component) are present. Clinician Provided ICD9 [facility] ACCOUNT BILL Comment: 701.9 ; Unspecified hypertrophic and atrophic condition of skin V72.31 ; Routine gynecological examination Performed by [facility] ACCOUNT BILL Comment:Esmer Muñoz, Cyto technologist (ASCP) QC Reviewed by [facility] ACCOUNT BILL Comment:Paulette Abrams Resource Program Teacher (ASCP) Comment . [facility] ACCOUNT BILL Note [...] Thin Prep Vial Resulting Agency Comment [facility] [address] [id number] Jaycee Omalley MD LAB - PATHOLOGY/CYTO LOGY ORDERABLES [facility] ACCOUNT BILL from Last 3 Months or Most Recently Relevant to Health Maintenance Ria Griffin Personal/Family Self 1985 [id number], [place] [address]
--- OUTSIDE RECORDS SUMMARY | 2024-05-08 12:50 | XMS_ITS | Patient Health Summary ---
Author Organization [facility] Address [address] [place] [address] Care Team Providers Care Scrap Sawyer Name Role Phone Unavailable Primary Care Provider Unavailabl e Note from [facility],non-owned Affiliates and Associated Physician Practices is amultiple site organization consisting of ambulatory clinics and hospital sitesin [place], [place], [place] and [place]. This disclosure is being madepursuant to the Care Everywhere program and may not contain all information available regarding this patient. Last updated 17.[facility] Allergies * Sulfa Drugs Medications Be aware that medications may not [...] Mass Index 27.46 07/26/2020 9:14 AM CDT Procedures * URINALYSIS AUTO - POINT OF CARE (AMB) STL(Performed 07/26/2020) Performed for Cystitis with hematuria * STREP A SCREEN - POINT OF CARE (AMB) STL(Performed 07/03/2017) Performed for Strep pharyngitis * XR CHEST 2VW(Performed 03/27/2016) Performed for Cough * PATHOLOGY SPECIMEN(Performed 06/12/2010) Performed for Skin tag, Routine gynecological examination * PAP IG LB CT+GC RFLX HPV HR ASCU(Performed 06/12/2010) Performed for Routine gynecological examination, Skin tag Results * URINALYSIS AUTO - POINT OF CARE (AMB) STL (07/26/2020 9:10 AM CDT) Clarity UA POCT cloudy [facility] [address] Color UA POCT yellow [facility] [address] Leukocyte UA 125 Negative [facility] [address] Nitrite UA POCT positive Negative [facility] [address] Urobilinogen UA 0.2 0.1 - 1.0 [facility] [address] Protein UA POCT trace Negative [facility] [address] pH UA 5.0 5.0 - 8.0 pH units [facility] [address] Blood UA 3+ Negative [facility] [address] Specific [place] UA POCT 1.025 1.002 - 1.030 [facility] [address] Ketone UA negative Negative [facility] [address] Bilirubin UA POCT 1+ Negative [facility] [address] Glucose UA negative Negative [facility] [address] Expiration Date 03/06/22 [facility] [address] Lot # [id number] [facility] [address] QC Verified Yes Yes [facility] [address] Urine URINE / Unknown 07/26/2020 9 :10 AM CDT Margaret Mcclendon DIESEL ENGINE INSPECTOR-REWRITER LAB - POINT OF CARE ORDERABLES [facility] [address] [place] [address] * (ABNORMAL) STREP A SCREEN - POINT OF CARE (AMB) STL (07/03/2017) Strep A Rapid POCT Positive(A) Negative Strep A Internal Control Present Lot # [id number] Expiration Date 01/24/19 Throat ENTIRE THROAT (SURFACE REGION OF NECK) / Unknown 07/03/2017 Nancy Mejia Tara DIESEL ENGINE INSPECTOR-REWRITER LAB - POINT OF CA RE ORDERABLES * XR CHEST PA AND LATERAL (03/27/2016 4:22 PM PHARMACY CARE COORDINATOR) Anatomical Region Laterality Modality Chest Radiographic Bren ging 03/27/2016 4:31 PM PHARMACY CARE COORDINATOR Impressions 03/27/2016 4:31 PM PHARMACY CARE COORDINATOR No acute thoracic process identified. Narrative 03/27/2016 4:31 PM PHARMACY CARE COORDINATOR Frontal and lateral chest radiographs COMPARISON: No relevant examinations. HISTORY: Cough FINDINGS: Visualized lungs are clear without pneumothorax, pleural effusion or consolidation. Cardiomediastinal silhouette is within normal limits for age and technique. Thoracic skeleton is without significant finding. Given smoking history, no evidence of COPD. Smoking cessation recommended. Procedure Note Brandon Frost MD - 03/27/2016 Frontal and lateral chest radiographs COMPARISON: No relevant examinations. HISTORY: Cough FINDINGS: Visualized lungs are clear without pneumothorax, pleural effusion or consolidation. Cardiomediastinal silhouette is within normal limits for age and technique. Thoracic skeleton is without significant finding. Given smoking history, no evidence of COPD. Smoking cessation recommended. IMPRESSION No acute thoracic process identified. Ellie Garvinn Rishabhmatthew DIESEL ENGINE INSPECTOR-REWRITER DIAGNOSTI C IMAGING ORDERABLES * PAP IG CT+GC RFLX HPV ASCU (PO REF LAB) (06/12/2010 2:34 PM CDT) Diagnosis [facility] ACCOUNT BILL Comment: NEGATIVE FOR INTRAEPITHELIAL LESION AND MALIGNANCY. CELLULAR CHANGES ASSOCIATED WITH INFLAMMATION ARE PRESENT. THIS SPECIMEN WAS RESCREENED PART OF OUR INFANT TODDLER LEAD TEACHER PROGRAM. Specimen Adequacy [facility] ACCOUNT BILL Comment: Satisfactory for evaluation. Endocervical and/or squamous metaplastic cells (endocervical component) are present. Clinician Provided ICD9 [facility] ACCOUNT BILL Comment: 701.9 ; Unspecified hypertrophic and atrophic condition of skin V72.31 ; Routine gynecological examination Performed by [facility] ACCOUNT BILL Comment:Esmer Muñoz, Cyto technologist (ASC) QC Reviewed by [facility] ACCOUNT BILL Comment:Paulette Abrams Yoke Presser ([facility]) Comment . [facility] ACCOUNT BILL Note [facility] [...] CYTYC Thin Prep Vial [facility]ing [facility] [id number] Jaycee Omalley MD LAB - PATHOLOGY/CYTO LOGY ORDERABLES [facility] ACCOUNT BILL * PATHOLOGY SPECIMEN (06/12/2010 2:34 PM CDT) Material [facility] ACCOUNT BILL Comment: Material submitted: . LEFT OUTER SIDE OF THE VULVA F Diagnosis [facility] ACCOUNT BILL Comment: Diagnosis: -- CONDYLOMA ACUMINATUM. -- NO HIGH GRADE SQUAMOUS DYSPLASIA OR CARCINOMA. MUR/06/15/2010 Signed [facility] ACCOUNT BILL Comment: Electronically signed: . Aurelio Paredes MD, Pathologist Grossed [facility] ACCOUNT BILL Comment: Gross description: . RECEIVED IN FORMALIN WITHOUT SITE DESIGNATED ON THE CONTAINER; DESIGNATED LEFT OUTER SIDE OF VULVA ON THE REQUISITION IS A SMALL FRAGMENT OF HILL/YELLOW TISSUE MEASURING 0.2 X 0.1 X 0.1 CM. IT IS FILTERED THROUGH AN EMBEDDING BAG AND SUBMITTED RECEIVED IN A SINGLE CASSETTE. LMS/DXS ICD-9 [facility] ACCOUNT BILL Comment: Pathologist provided ICD-9: 078.19 CPT [facility] ACCOUNT BILL Comment: CPT . [id number] SKIN TAG / Unknown 1 2:34 PM CDT 06/13/2010 10:09 AM CDT Narrative Resulting Agency Comment [facility] [address] [facility] [id number] Jaycee Omalley MD LAB - PATHOLOGY/CYTO LOGY ORDERABLES [facility] ACCOUNT BILL
[2024-05-08 13:06] LABS: Basophils Absolute Auto 0.1 K/mm3 (0.0-0.1); Basophils Percent Auto 0.5 % (0.2-1.2); Eosinophils Absolute Auto 0.2 K/mm3 (0-0.3); Eosinophils Percent Auto 1.8 % (0-4.4); Hematocrit 39.5 % (37.0-47.0); Hemoglobin 13.4 g/dL (12.0-15.0); Immature Granulocyte Absolute 0.03 K/mm3 (0.00-0.031); Immature Granulocyte Percent A 0.3 % (0-0.5); Lymphocytes Absolute Auto 2.23 K/mm3 (0.9-3.2); Lymphocytes Percent Auto 20.5 % (18.3-44.2); Mean Corpuscular HGB Conc 33.9 g/dl (32-36); Mean Corpuscular Hemoglobin 29.9 pg (26-34); Mean Corpuscular Volume 88.2 fl (80-100); Mean Platelet Volume 9.9 fl (7.4-10.4); Monocytes Absolute Auto 0.4 K/mm3 (0.1-0.6); Neutrophils Percent Auto 72.9 % (45.5-73.1); Platelet Count Result 341 k/mm3 (150-375); Red Blood Count 4.48 M/mm3 (4.2-5.4); Red Cell Distribution Width 12.5 % (11.5-14.5); White Blood Count 10.9 K/mm3 (4.5-10.0)
[2024-05-08 13:13] LABS: Add Urine Microscopic? YES; Appearance Urine Clear (Clear); Bacteria Urine None Seen /hpf; Bilirubin Urine Negative (Negative); Blood Urine 2+ (Negative); Color Urine Yellow (Yellow); Glucose Urine UA Negative (Negative); Ketones Urine Trace mg/dL (Negative); Leukocyte Esterase Ur Trace LEU/UL (Negative); Need Manual Microscopic Reviewed; Nitrate Urine Negative (Negative); Non Pathogenic Casts 0-2; Protein Urine Negative (Negative); Specific Grav Ur 1.014 (1.001-1.035); Squamous Epithelial Cell Urine Occasional /hpf (Few); Urobilinogen Urine 0.2 mg/dL (<2.0); WBC Urine 0-5 /hpf (0-3); pH Urine 6.5 (5.0-9.0)
[2024-05-08 13:24] LABS: INR 0.9; Prothrombin Time 12.6 Seconds (11.1-14.7)
[2024-05-08 13:25] LABS: Alanine Aminotransferase 18 U/L (6-35); Albumin Level 4.6 g/dL (3.5-5.1); Alkaline Phosphatase 65 U/L (38-126); Anion Gap 12 mmol/L (4-12); Aspartate Amino Transferase 18 U/L (14-36); Bilirubin,Total 0.6 mg/dL (0.2-1.3); Blood Urea Nitrogen 6 mg/dL (7-17); Calcium 9.8 mg/dL (8.4-10.2); Carbon Dioxide 24 mmol/L (22-30); Chloride 104 mmol/L (98-107); Estimated Glomerular Filt Rate > 60; Glucose 139 mg/dL (65-110); Potassium 4.2 mmol/L (3.4-5.0); Sodium 140 mmol/L (137-145)
[2024-05-08 13:26] LABS: Partial Thromboplastin Time 27.1 Seconds (22.3-36.8)
[2024-05-08] MEDS: LACTATED RINGERS 1,000 ML 999 ML IV CONT (13:54)
[2024-05-08] MEDS: ONDANSETRON INJ 4 MG/2 ML VIAL IV PUSH (13:56)
[2024-05-08] MEDS: MORPHINE SULFATE (*CRX) 4 MG/ML INJ IV PUSH (13:56)
[2024-05-08 13:59] VITALS: BP 132/90; PULSE 77; RESP 16; O2SAT 99
[2024-05-08 14:36] VITALS: TEMP 36
== END 2024-05-08 14:38 | disposition home or self-care (01) ==
PROVIDERS: Emergency Provider Student in an Organized Health Care Education/Training Program
DX: O20.0 Threatened abortion (principal); Z3A.01 Less than 8 weeks gestation of pregnancy
CPT/HCPCS: 36415; 76801; 76817; 80053; 81001; 84702; 85025; 85461; 85610; 85730; 86850; 86900; 86901; 96361; 96374; 96375; 99284; J2270; J2405; J7120